=== PATIENT | female | born 2000 | race Caucasian/White ===

== ENCOUNTER → 2023-10-13 18:45 | Outpatient (CLI) | payer OTHER, SELFPAY ==
[2023-10-13 20:31] LABS: Urine N gonorrhoeae NOT DETECTED
[2023-10-13 20:49] LABS: Urine Chlamydia NOT DETECTED
== END ==
PROVIDERS: Visit Provider Nurse Practitioner Family
DX: R30.0 Dysuria (principal); N94.9 Unspecified condition associated with female genital organs and menstrual cycle
CPT/HCPCS: 87077; 87086; 87186; 87491; 87591

== ENCOUNTER → 2023-10-15 14:57 | Outpatient (CLI) | payer OTHER, SELFPAY | PROVIDERS: Visit Provider Physician Assistant | DX: N94.89 Other specified conditions associated with female genital organs and menstrual cycle (principal) | CPT/HCPCS: 87210 ==